=== PATIENT | female | born 1960 | race Caucasian/White ===

== ENCOUNTER 2016-10-18 13:19 | Emergency (ER) | payer MEDICAID ==
[~2016-10-18] VITALS: Ht 154.9 cm; Wt 55.4 kg
[2016-10-18 13:22] VITALS: BP 111/68
== END 2016-10-18 15:31 | disposition home or self-care (01) ==
LOC: ED 13:19
DX: M54.31 Sciatica, right side (principal); F17.210 Nicotine dependence, cigarettes, uncomplicated; Z71.6 Tobacco abuse counseling
CPT/HCPCS: 99406

== ENCOUNTER 2016-12-30 13:46 | Emergency (ER) | payer MEDICAID ==
[2016-12-30 17:09] VITALS: BP 122/74
[2017-01-01 10:53] LABS: RAPID PLASMA REAGIN Non Reactive (Non Reactive)
== END 2016-12-30 17:09 | disposition home or self-care (01) ==
LOC: ED 13:46
PROVIDERS: Emergency Medicine
DX: N90.89 Other specified noninflammatory disorders of vulva and perineum (principal); Z86.19 Personal history of other infectious and parasitic diseases; Z79.2 Long term (current) use of antibiotics
CPT/HCPCS: 82962; 87491; 87591; J0696